=== PATIENT | male | born 1975 | race Caucasian/White ===

== ENCOUNTER → 2018-03-18 | Outpatient (CLI) | payer BC | LOC: SL 03-10 14:05 | PROVIDERS: ATTEND Family Medicine | DX: G47.33 Obstructive sleep apnea (adult) (pediatric) (principal) ==

== ENCOUNTER → 2018-06-26 | Outpatient (CLI) | payer BC | LOC: GMAJ 12:00 | PROVIDERS: ATTEND Family Medicine | DX: Z00.00 Encounter for general adult medical examination without abnormal findings (principal) ==

== ENCOUNTER → 2019-07-02 | Outpatient (CLI) | payer BC | LOC: GMAJ 14:45 | PROVIDERS: ATTEND Family Medicine | DX: E29.1 Testicular hypofunction (principal); I10 Essential (primary) hypertension; E78.2 Mixed hyperlipidemia ==

== ENCOUNTER → 2019-11-02 | Outpatient (CLI) | payer BC | LOC: GMAJ 10:49 | PROVIDERS: ATTEND Family Medicine | DX: D45 Polycythemia vera (principal); E29.1 Testicular hypofunction; I10 Essential (primary) hypertension ==

== ENCOUNTER → 2020-04-12 | Outpatient (CLI) | payer BC | LOC: GMAJ 11:32 | PROVIDERS: ATTEND Family Medicine | DX: E29.1 Testicular hypofunction (principal) ==

== ENCOUNTER → 2020-09-23 | Outpatient (CLI) | payer BC | LOC: GMAJ 13:12 | PROVIDERS: ATTEND Family Medicine | DX: R53.83 Other fatigue (principal); I10 Essential (primary) hypertension; I50.31 Acute diastolic (congestive) heart failure; E78.2 Mixed hyperlipidemia; E29.1 Testicular hypofunction; Z79.899 Other long term (current) drug therapy ==